=== PATIENT | female | born 1955 | race Caucasian/White ===

== ENCOUNTER 2019-12-21 07:03 | Day surgery (SDC) | payer MEDICARE, OTHER ==
[~2019-12-21] VITALS: Ht 165.1 cm; Wt 70.3 kg
[~2019-12-21 07:03] MED LIST: AMLODIPINE BESYL5 MG PO; CYMBALTA60 MG PO; ENALAPRIL MALEA20 MG PO; LIPITOR40 MG PO; MELATONIN10 M4 SL; OMEGA 3 500 SO1 EACH PO; POTASSIUM99 M1 PO; VITAMIN D310 MC4 PO
--- NOTE | 2019-12-21 07:05 | NUR ---
PT ARRIVED TO THE UNIT WALKING IDEPENDENTLY. PT INSTRUCTED TO DRESS DOWN INTO HOSPITAL GOWN. PT RESTING IN BED. BED LOWERED AND LOCKED, CALL LIGHT WITHIN REACH.
[2019-12-21] MEDS ORDERED: CALCIUM500 MG PO (07:22)
[2019-12-21] MEDS ORDERED: CELEBREX100 MG PO (07:23)
--- NOTE | 2019-12-21 09:08 | NUR ---
12/21/19 0908 Esme Cortes 0901-PATIENT ARRIVED TO PACU ON 2L NC PATIENT DROWSY EYES OPEN DENIES PAIN OR NAUSEA. RR EVEN. LAYING LEFT LATERAL ABDOMEN SOFT ENCOURAGED TO PASS GAS. IVF INFUSING. PATIENT DOZES BACK TO SLEEP
--- NOTE | 2019-12-21 10:30 | OR ---
[facility] [address] [place], [place] [address] Signed DATE OF OPERATION: 12/21/2019 SURGEON: Raven Bates MD PREOPERATIVE DIAGNOSES: 1. Intermittent rectal bleeding. 2. Unremarkable colonoscopy at age 44. POSTOPERATIVE DIAGNOSES: 1. Moderate angulation at rectosigmoid junction (12-15 cm). 2. Severe angulation at 35 cm. 3. Moderate sigmoid diverticulosis. PROCEDURE: Limited colonoscopy without biopsy (35 cm). ESTIMATED BLOOD LOSS: None. INDICATIONS: Ela is a 64-year-old female, who I was asked to see me for a colonoscopy. She said once in a while she has blood associated with her bowel movements. She has had at age 44, around 1999, she had a negative colonoscopy while living up in [place], [place], unfortunately we do not have those results. She is now back in to [facility]. She gives no family history of colon cancer or polyps. She has changed her diet and lost a significant amount of weight and is no longer diabetic. She said she is doing great. She does not seem to have any lower GI complaints. She did have a previous hysterectomy back in 1981. In the office, I gave Ela a pamphlet on colonoscopy. We reviewed the nature of the test along with its risks including, but not limited to gas bloating, crampy abdominal pain, bleeding, perforation requiring surgery, and missed diagnosis. She also understands the need for IV conscious sedation. She had expressed understanding and wished to proceed. PROCEDURE NOTE: Ela was taken into our endoscopy suite and placed in the left lateral decubitus position. She was given IV sedation with 12 mg of Versed and 200 mcg of fentanyl. Even then, she was moving around and was awake and talking to us near the end of the procedure. A digital rectal exam was performed, this was unremarkable. The adult colonoscope was introduced and advanced under direct visualization of camera. She has a somewhat narrow rectum. It took a few minutes to get around the rectosigmoid junction Electronically Signed By: RAVEN BATES MD 12/21/19 1030 PATIENT NAME: ELA PARRY OPERATIVE REPORT DATE OF : 53 REPORT #: [id number] PHYSICIAN: RAVEN BATES MD PCP: ERIC SARABIA MD REPORT IS CONFIDENTIAL AND NOT TO BE RELEASED WITHOUT AUTHORIZATION [facility] [address] [place], [place] [address] Signed around 12 to 15 cm chapin. We encountered her diverticula in and up at 35 cm. It was severe, angulated, we never could get the adult colonoscope through that area. We could see up just a little bit, but the camera would not make the turn in, there was quite a bit of tension and torque on our scope. The scope was then slowly withdrawn. We were unable to retroflex the adult colonoscope in her rectum. We changed that out for our adult gastroscope and inserted into the rectum. Again, we passed the rectosigmoid junction up to 35 cm. Once again, we could not get the camera through this area. The gastroscope was returned back down to the rectum, and again we were unable to retroflex the scope in her near rectum. After this, the gas was suctioned out, colonoscope removed. Ela tolerated the procedure well. RECOMMENDATIONS: Ela will need an outpatient barium enema to evaluate her colon. Raven Bates MD ALB/MODL /[id number] cc: Raven Bates MD Copies: RAVEN BATES MD ~ Electronically Signed By: RAVEN BATES MD 12/21/19 1030 PATIENT NAME: ELA PARRY OPERATIVE REPORT DATE OF : 53 REPORT #: [id number] PHYSICIAN: RAVEN BATES MD PCP: ERIC SARABIA MD REPORT IS CONFIDENTIAL AND NOT TO BE RELEASED WITHOUT AUTHORIZATION
== END 2019-12-21 10:00 | disposition home or self-care (01) ==
LOC: DS 07:03 → OPS 07:03 → DS 08:15 → OPS 10:00
PROVIDERS: ATTEND Colon & Rectal Surgery
PROC: 0DJD8ZZ Inspection of Lower Intestinal Tract, Via Natural or Artificial Opening Endoscopic (ICD-10-PCS; principal; 2019-12-21 08:15)
DX: K62.5 Hemorrhage of anus and rectum (principal); K56.609 Unspecified intestinal obstruction, unspecified as to partial versus complete obstruction; K57.30 Diverticulosis of large intestine without perforation or abscess without bleeding; Z90.710 Acquired absence of both cervix and uterus; Z79.899 Other long term (current) drug therapy
CPT/HCPCS: 99153; G0500; J0690; J2250; J3010; J7121

== ENCOUNTER 2020-09-13 13:02 | Observation (INO) | payer MEDICARE, OTHER ==
[~2020-09-13] VITALS: Ht 165.1 cm; Wt 66.7 kg
[~2020-09-13 13:02] MED LIST changes: +CALCIUM500 MG PO; +CELEBREX100 MG PO; -OMEGA 3 500 SO1 EACH PO; +OMEGA 3 FISH O1 EACH PO
--- NOTE | 2020-09-13 14:35 | EKG ---
[facility] [address] [facility] [place], [place] [address] Signed Normal sinus rhythm Possible Left atrial enlargement Low voltage QRS Cannot rule out Anterior infarct , age undetermined Abnormal ECG No previous ECGs available Confirmed by KOBY LOPEZ MD ([id number]) on 09/13/2020 2:35:30 PM Electronically Signed By: KOBY LOPEZ MD 09/13/20 1435 PATIENT NAME: NICKY PARRY Electrocardiogram DATE OF : 53 PHYSICIAN: KOBY LOPEZ MD REPORT #: [id number] REPORT IS CONFIDENTIAL AND NOT TO BE RELEASED WITHOUT AUTHORIZATION
--- NOTE | 2020-09-13 17:36 | NUR ---
New admit to the floor. Patient alert and oriented x4, vital signs stable. Patient's speech is clear and appropriate. Focused neuro assessment done; upper/lower dredge mate are equal/intact. Patient's gait appears even/steady; up to bathroom and back to bed. Oriented patient to room and call light. Dinner ordered. Patient denies any visual deficits. Bed alarm intact.
--- NOTE | 2020-09-13 19:07 | NUR ---
IN ROOM FOR REPORT, PT IS AWAKE IN BED. SHE WAS UP TO USE THE RESTROOM BUT IS NOW BACK IN BED. CALL LIGHT IS CLOSE.
--- NOTE | 2020-09-13 21:56 | NUR ---
IN ROOM TO ASSESS PT AND ADMINISTER MELATONIN. PT DENIES PAIN AT THIS TIME. SHE DENIES SOB AND DIZZINESS. PT STATES SHE "FEELS MUCH BETTER THAN THIS MORNING". 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 ASSISTED PT SBA TO RESTROOM AND BACK TO BED. BP IS ELEVATED BUT WITHIN PARAMETERS. IV IS INFUSINE FINE AND PT DENIES NEEDS. CALL LIGHT IS CLOSE.
--- NOTE | 2020-09-13 23:03 | NUR ---
IN ROOM TO ASSIST PT TO THE RESTROOM AND BACK TO BED. ADMINISTERED PO TYLENOL PER ORDERS FOR GENERAL ACHES & PAINS FROM LYING IN BED. PT DENIES FURTHER NEEDS, CALL LIGHT IS CLOSE AND IV IS INFUSING FINE.
--- NOTE | 2020-09-14 00:03 | NUR ---
PT CALLED FOR HELP TO RESTROOM, SHE IS NOW BACK IN BED AND DENIES FURTHER NEEDS. CALL LIGHT IS CLOSE.
--- NOTE | 2020-09-14 01:05 | NUR ---
PT CALLED FOR ASSISTANCE TO RESTROOM AND BACK TO BED. VS TAKEN AND ENTERED. PT DENIES ANY SYMPTOMS/PAIN. CALL LIGHT IS CLOSE. IV IS INFUSING FINE.
--- NOTE | 2020-09-14 02:20 | NUR ---
PT CALLED FOR ASSISTANCE TO RESTROOM. SHE IS NOW BACK IN BED AND DENIES FURTHER NEEDS. CALL LIGHT IS CLOSE AND IV IS INFUSING FINE.
--- NOTE | 2020-09-14 04:10 | NUR ---
PT IS RESTING WITH EYES CLOSED, RR IS EVEN AND NONLABORED. CALL LIGHT IS CLOSE AND IV IS INFUSING FINE.
--- NOTE | 2020-09-14 05:07 | NUR ---
PT CALLED, SBA TO BATHROOM.
--- NOTE | 2020-09-14 05:33 | NUR ---
PT DENIED ANY STROKE SX THROUGH THE NIGHT. SHE WAS UP ALOT TO URINATE DURING THE NIGHT. SHE IS ON 2G SODIUM DIET AND TOLERATING IT FINE. SHE AMBULATES SBA TO RESTROOM. SHE IS ON TELE#9 IN SR. BP'S ARE ELEVATED BUT WITHIN PARAMETERS.
--- NOTE | 2020-09-14 05:43 | NUR ---
IN ROOM TO HANG NEW BAG OF IV FLUIDS. FRESH ICEWATER PROVIDED AND PT DENIES FURTHER NEEDS. CALL LIGHT IS CLOSE.
--- NOTE | 2020-09-14 08:08 | NUR ---
PT UP TO BATHROOM TO VOID. SBA, PT STEADY ON FEET. IVF CONTINUES @ 75 MLS/HR.
[2020-09-14] MEDS ORDERED: LO-DOSE ASPIRIN81 MG PO (08:50)
--- NOTE | 2020-09-14 09:03 | NUR ---
IN TO GIVE MORNING MEDICATIONS. PT SITTING UP IN CHAIR EATING BREAKFAST. A&O X4. 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 PUPILS ARE PERRLA. PT STATES SHE IS FEELING MUCH BETTER TODAY. DR LOPEZ IN TO SEE PT AND HAS ORDERED DISCHARGE. VSS. LAC IV REMOVED, CATH INTACT. PT EATING BREAKFAST AND WILL CONTACT RIDE TO SENIOR UX DESIGNER. CALL LIGHT IN REACH. DENIES FURTHER NEEDS.
[2020-09-14] MEDS ORDERED: METAMUCIL660 GM PO (09:14)
[2020-09-14] MEDS ORDERED: CBD OIL PO (09:15)
--- NOTE | 2020-09-14 10:00 | NUR ---
PT DRESSED AND READY TO DISCHARGE. TOLERATING FOOD WELL AND DENIES PAIN OR NAUSEA. NEURO ASSESSMENT WNL. PT STABLE. FRIEND HERE TO WATER TENDER. PT WHEELED TO LOBBY TO DEPART FACILITY.
--- NOTE | 2020-09-14 11:17 | NUR ---
PATIENT CALLED THIS MORNING NEEDED TO USE THE BATHROOM. THEN SHE ORDERED HER BREAKFAST. SHE SET UP IN HER CHAIR TO EAT HER BREAKFAST. BED LINENS CHANGED.
--- NOTE | 2020-09-14 13:39 | NUR ---
Pt lives in [place] in a 1 story home with 1 step. Does not use DME Plans on dc to home and states she has multiple family members who will check on her. States she has bought a home in [place] and will be moving [facility] the end of September. Denies any needs to go home and is financially ok.
== END 2020-09-14 10:00 | disposition home or self-care (01) ==
LOC: ED 13:02 → MS 13:04
PROVIDERS: ADMIT Internal Medicine; ATTEND Internal Medicine
DX: G45.9 Transient cerebral ischemic attack, unspecified (principal); I10 Essential (primary) hypertension; E78.5 Hyperlipidemia, unspecified; E11.9 Type 2 diabetes mellitus without complications; Z87.891 Personal history of nicotine dependence; Z91.038 Other insect allergy status; Z88.0 Allergy status to penicillin; Z88.2 Allergy status to sulfonamides; Z91.018 Allergy to other foods; Z20.822 Contact with and (suspected) exposure to COVID-19
CPT/HCPCS: 36415; 70450; 70496; 70498; 71045; 80048; 80053; 83735; 84439; 84443; 85025; 85610; 85730; 93005; 93010; 96372; 99285-25; C9803; G0378; J1650; J7030; Q9967; U0003